=== PATIENT | male | born 1990 | race Caucasian/White ===

== ENCOUNTER 2016-09-10 18:03 | Emergency (ER) | payer OTHER ==
[~2016-09-10] VITALS: Ht 162.6 cm; Wt 100.0 kg
[2016-09-10 18:09] VITALS: Ht 162.6 cm; Wt 100.0 kg
[2016-09-10] MEDS ORDERED: PRED20TA PO (20:49)
[2016-09-10] MEDS ORDERED: SULF1TAB31 PO (20:49)
[2016-09-10] MEDS ORDERED: CEPH-443 PO (20:49)
[2016-09-10] MEDS ORDERED: CALA177S TOP (20:49)
[2016-09-10] MEDS ORDERED: KENC1 TOP (20:51)
[2016-09-10 21:32] VITALS: BP 132/72; PULSE 88; RESP 20; TEMP 98.6
--- NOTE | 2016-09-11 01:00 | ERD ---
ER Documentation Chief Complaint Date/Time DATE: 09/11/16 TIME: 00:57 Chief Complaint LEFT LEG RASH YESTERDAY, REDNESS AND SWELLING TODAY HPI This is a 26-year-old male who presents to the ED with bilateral lower extremity rash and itching. Patient states that started with a vesicular rash on the left leg 4 days ago that eventually ruptured and became erythematous. Patient stated that the right leg rash developed yesterday. 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 Denies any recent history of fever, nausea, vomiting, diarrhea, cough, dysuria, shortness of breath or chest pain. Patient denies taking any new medications, food or clothing. Patient did not take any medications at home. Has surgical history of appendectomy. No known drug allergies. ROS All systems reviewed and are negative except as per history of present illness. Medications Home Meds Active Scripts Triamcinolone Acetonide (Triamcinolone Acetonide) 0.1% - 15 Gm Cream.gm., 1 APPLIC TOP BID, #1 TUB Prov:MICHAEL GIRARD 09/10/16 Calamine with Zinc Oxide* (Calamine with Zinc Oxide*) 177 Ml Suspension, 1 APPLIC TOP Q4H Y for 5 Days, EA Prov:MICHAEL GIRARD 09/10/16 Prednisone* (Prednisone*) 20 Mg Tab, 40 MG PO DAILY for 4 Days, TAB Prov:MICHAEL GIRARD 09/10/16 Sulfamethoxazole/Trimethoprim (Bactrim Ds Tablet) 1 Each Tablet, 1 EACH PO BID for 7 Days, TAB Prov:MICHAEL GIRARD 09/10/16 Cephalexin* (Keflex*) 500 Mg Capsule, 500 MG PO QID for 7 Days, CAP Prov:MICHAEL GIRARD 09/10/16 Allergies Allergies: Coded Allergies: No Known Allergy (Unverified , 06/24/11) PMhx/Soc History of Surgery: Yes (appendectomy) Anesthesia Reaction: No Hx Neurological Disorder: No Hx Respiratory Disorders: No Hx Cardiac Disorders: No Hx Psychiatric Problems: No Hx Miscellaneous Medical Probl: No Hx Alcohol Use: No Hx Substance Use: No Hx Tobacco Use: No Smoking Status: Never smoker Physical Exam Vitals Vital Signs Date Time Temp Pulse Resp B/P Pulse Ox O2 Delivery O2 Flow Rate FiO2 09/10/16 21:32 98.6 88 20 132/72 99 Room Air 09/10/16 18:09 98.0 90 20 140/78 99 Physical Exam Physical Exam CONST: Well-developed, well-nourished, in no acute distress. Nontoxic in appearance. HEENT: Atraumatic. Normal conjunctiva. EOM intact. TM intact. External ear is normal. Clear oropharnyx without erythema. No uvular deviation. Moist mucous membranes. Supple neck. No meningismus. No submandibular induration. RESP: Clear to auscultation bilaterally. No wheezing. CARDIO: Regular rate and rhythm, no murmurs. ABD: Soft, non tender, non distended. Normal bowel sounds. No McBurney's point tenderness. No guarding or rigidity. No peritoneal signs. SKIN: Vesicular rashes L>R lower extremities. Surrounding erythema noted on the left vesicular rashes. Ulceration was also noted due to scratching. BACK: No midline or flank tenderness. EXT: No cyanosis or edema. Distal pulses equal and bilateral. NEURO: Awake and alert, appropriate for age. 5/5 strength in all extremities. Normal speech. Steady gait. Procedures/[facility] EMERGENCY DEPARTMENT COURSE/MEDICAL DECISION MAKING This is a 18-year-old male who comes to the emergency room secondary to complaints of rashes on both lower extremities and erythema in her left lower extremity. Patient appears nontoxic and afebrile. I Believe the rashes are caused by contact dermatitis from hiking. My primary diagnosis is rash. Secondary diagnosis is cellulitis Differential diagnoses considered but not limited to scabies, cellulitis, dermatitis, foreign body, varicella, eczema, fungal infection, Lyme disease. Pt is hemodynamically stable upon reassessment. There are no new complaints during the ED course. The patient was discharged for outpatient management with a prescription for Bactrim, Keflex, prednisone, calamine lotion and triamcinolone. The patient was advised to see a director global and to followup with their PMD in 1-2 days and to return to the Emergency Department if there are any new or worsening symptoms. The patient understood and agreed with the diagnosis, treatment and plan. Patient is stable for discharge at this time. Departure Diagnosis: Primary Impression: Rash Additional Impression: Cellulitis Site of cellulitis: extremity Site of cellulitis of extremity: lower extremity Laterality: left Qualified Code: L03.116 - Cellulitis of left lower extremity Condition: Stable Patient Instructions: Self-Care for Skin Rashes, Cellulitis Referrals: [facility] YOU HAVE RECEIVED A MEDICAL SCREENING EXAM AND THE RESULTS INDICATE THAT YOU DO NOT HAVE A CONDITION THAT REQUIRES URGENT TREATMENT IN THE EMERGENCY DEPARTMENT. FURTHER EVALUATION AND TREATMENT OF YOUR CONDITION CAN WAIT UNTIL YOU ARE SEEN IN YOUR DOCTORS OFFICE WITHIN THE NEXT 1-2 DAYS. IT IS YOUR RESPONSIBILITY TO MAKE AN APPOINTMENT FOR FOLOW-UP CARE. IF YOU HAVE A PRIMARY DOCTOR --you should call your primary doctor and schedule an appointment IF YOU DO NOT HAVE A PRIMARY DOCTOR YOU CAN CALL OUR PHYSICIAN REFERRAL HOTLINE AT IF YOU CAN NOT AFFORD TO SEE A PHYSICIAN YOU CAN CHOSE FROM THE FOLLOWING [facility] [id number] [facility] [address] [facility] [facility] [address] [facility] [address] [facility] [address] [facility]. [facility] [address] [facility]. [facility] YOU HAVE RECEIVED A MEDICAL SCREENING EXAM AND THE RESULTS INDICATE THAT YOU DO NOT HAVE A CONDITION THAT REQUIRES URGENT TREATMENT IN THE EMERGENCY DEPARTMENT. FURTHER EVALUATION AND TREATMENT OF YOUR CONDITION CAN WAIT UNTIL YOU ARE SEEN IN YOUR DOCTORS OFFICE WITHIN THE NEXT 1-2 DAYS. IT IS YOUR RESPONSIBILITY TO MAKE AN APPOINTMENT FOR FOLOW-UP CARE. IF YOU HAVE A PRIMARY DOCTOR --you should call your primary doctor and schedule and appointment IF YOU DO NOT HAVE A PRIMARY DOCTOR YOU CAN CALL OUR PHYSICIAN REFERRAL HOTLINE AT . IF YOU CAN NOT AFFORD TO SEE A PHYSICIAN YOU CAN CHOSE FROM THE FOLLOWING [facility]: [facility] [address] [place] [address] [facility] [address] [place] [address] [facility] [address] [place] [address] Additional Instructions: See a director global. Call your primary care doctor tomorrow for an appointment during the next 1-2 days. Return to the emergency department immediately should you have any new or worsening symptoms. Take all medications as directed. MICHAEL GIRARD Sep 11, 2016 00:59
== END 2016-09-10 21:33 | disposition home or self-care (01) ==
LOC: FTE 18:03
DX: R21 Rash and other nonspecific skin eruption (principal); L03.116 Cellulitis of left lower limb
CPT/HCPCS: 99284

== ENCOUNTER 2017-05-12 07:10 | Emergency (ER) | payer MEDICAID, OTHER ==
[~2017-05-12] VITALS: Ht 170.2 cm; Wt 89.3 kg
[~2017-05-12 07:10] MED LIST: CALA177S TOP; CEPH-443 PO; PRED20TA PO; SULF1TAB31 PO; TRIA15CR55 TOP
[2017-05-12 07:12] VITALS: Ht 170.2 cm; Wt 89.3 kg
[2017-05-12] MEDS ORDERED: morphine 4 MG/ML VIAL IV STA (07:49)
[2017-05-12] MEDS ORDERED: FAMOTIDINE 20 MG TAB PO STA (07:49)
[2017-05-12] MEDS ORDERED: ONDANSETRON 4 MG INJ IV STA (07:49)
[2017-05-12 08:13] LABS: BASOPHILS % 0.5 % (0.0-2.0); EOSINOPHILS # 0.1 10^3/ul (0.0-0.5); EOSINOPHILS % 0.9 % (0.0-7.0); HEMATOCRIT 43.6 % (42.0-52.0); HEMOGLOBIN 14.2 g/dl (14.0-18.0); LYMPHOCYTES # 1.8 10^3/ul (0.8-2.9); LYMPHOCYTES % 21.1 % (15.0-51.0); MEAN CORPUSCULAR HEMOGLOBIN 27.8 pg (29.0-33.0); MEAN CORPUSCULAR HGB CONC 32.6 g/dl (32.0-37.0); MEAN CORPUSCULAR VOLUME 85.5 fl (82.0-101.0); MEAN PLATELET VOLUME 9.8 fl (7.4-10.4); MONOCYTE # 0.4 10^3/ul (0.3-0.9); MONOCYTES % 4.7 % (0.0-11.0); NEUTROPHIL # 6.3 10^3/ul (1.6-7.5); NEUTROPHILS % 72.6 % (39.0-77.0); PLATELET COUNT 398 10^3/UL (140-415); RED CELL DISTRIBUTION WIDTH 13.5 % (11.5-14.5); WHITE BLOOD COUNT 8.7 10^3/ul (4.8-10.8)
[2017-05-12 08:18] LABS: ADD UMIC YES; UR ASCORBIC ACID NEGATIVE (NEGATIVE); UR BILIRUBIN (Dip) NEGATIVE (NEGATIVE); UR BLOOD (Dip) 1+ mg/dL (NEGATIVE); UR CLARITY CLEAR (CLEAR); UR COLOR YELLOW (YELLOW); UR GLUCOSE (Dip) NEGATIVE (NEGATIVE); UR KETONES (Dip) NEGATIVE (NEGATIVE); UR LEUKOCYTE ESTERASE (Dip) NEGATIVE Leu/ul (NEGATIVE); UR NITRITE (Dip) NEGATIVE (NEGATIVE); UR RBC 1 /HPF (0-5); UR SPECIFIC GRAVITY (Dip) 1.021 (1.003-1.030); UR TOTAL PROTEIN (Dip) NEGATIVE (NEGATIVE); UR UROBILINOGEN (Dip) NEGATIVE (NEGATIVE)
[2017-05-12 08:46] LABS: ALBUMIN/GLOBULIN RATIO 1.53; CALCIUM 9.6 mg/dl (8.4-10.2); CREATININE 1.06 mg/dl (0.61-1.24); POTASSIUM 4.5 mmol/L (3.5-5.1); TOTAL PROTEIN 6.6 g/dl (6.1-8.1)
--- NOTE | 2017-05-12 09:00 | RADRPT ---
PROCEDURE: Right upper quadrant abdominal ultrasound. CLINICAL INDICATION: Abdominal pain TECHNIQUE: Morales scale and color doppler ultrasound images of the right upper quadrant of the abdom en. COMPARISON: None FINDINGS: Pancreas: Not well visualized. Liver: Morphology: The right lobe of the liver is elongated measuring up to cm which may reflect Joni's lobe configuration. Contour:Normal, no evidence of nodularity. Echogenicity: Normal. Focal lesions:None. Main portal vein: Patent with hepatopetal flow. Biliary System: Gallbladder wall: Normal thickness. Gallstones: Present Intrahepatic bile ducts: Normal caliber. Common bile duct diameter (mm): 3.8 Kidneys: Right length (cm) : 10.7 Right cortical thickness: Normal. Echogenicity: Normal. Hydronephrosis: None. Renal calculi: None. Focal lesions: None. Free fluid/ascites: None. Abdominal aorta: Not visualized by the mailmaster. Other findings: None. IMPRESSION: Cholelithiasis without evidence of abnormal gallbladder wall thickening to suggest cholecystitis. Normal caliber of the intrahepatic and extrahepatic biliary system. RPTAT: AADD .Nehemiah Victoria MD, MD Date Time Electronically viewed and signed by .Nehemiah Victoria MD, on 05/12/2017 09:00 .B/
--- NOTE | 2017-05-12 10:22 | ERD ---
ER Documentation Chief Complaint Chief Complaint abdominal pain this morning HPI This is a 26 -year-old male who presents to the emergency department today complaining of upper abdominal pain that started this morning. States that the pain "will not go away. States he has a history of appendectomy. States that he went out last night and ate from a food truck and has had pain since that time. States that he drinks some lemon water but has not improved in symptoms. Denies any alcohol use or drug abuse. States he recently lost 65 pounds to help with his diet. Denies any vomiting or diarrhea. Denies any fevers or chills. ROS All systems reviewed and are negative except as per history of present illness. Medications Home Meds Active Scripts Famotidine* (Pepcid*) 20 Mg Tablet, 20 MG PO BID for 10 Days, TAB Prov:JUAN STEIN PA-C 05/12/17 Naproxen* (Naprosyn*) 500 Mg Tablet, 500 MG PO BID Y for PAIN AND/OR INFLAMMATION, #30 TAB Prov:JUAN STEIN PA-C 05/12/17 Hydrocodone/Acetaminophen ([place] 5-325 Tablet) 1 Each Tablet, 1 TAB PO Q6H Y for PAIN, #10 TAB Prov:JUAN STEIN PA-C 05/12/17 Triamcinolone Acetonide (Triamcinolone Acetonide) 0.1% - 15 Gm Cream.gm., 1 APPLIC TOP BID, #1 TUB Prov:MICHAEL GIRARD 09/10/16 Calamine with Zinc Oxide* (Calamine with Zinc Oxide*) 177 Ml Suspension, 1 APPLIC TOP Q4H Y for 5 Days, EA Prov:MICHAEL GIRARD 09/10/16 Prednisone* (Prednisone*) 20 Mg Tab, 40 MG PO DAILY for 4 Days, TAB Prov:MICHAEL GIRARD 09/10/16 Sulfamethoxazole/Trimethoprim* (Bactrim Ds* Tablet) 1 Each Tablet, 1 EACH PO BID for 7 Days, TAB Prov:MICHAEL GIRARD 09/10/16 Cephalexin* (Keflex*) 500 Mg Capsule, 500 MG PO QID for 7 Days, CAP Prov:MICHAEL GIRARD 09/10/16 Allergies Allergies: Coded Allergies: No Known Allergy (Unverified , 05/12/17) PMhx/Soc History of Surgery: Yes (appendectomy) Anesthesia Reaction: No Hx Neurological Disorder: No Hx Respiratory Disorders: No Hx Cardiac Disorders: No Hx Psychiatric Problems: No Hx Miscellaneous Medical Probl: No Hx Alcohol Use: Yes Hx Substance Use: No Hx Tobacco Use: No Smoking Status: Never smoker Physical Exam Vitals Vital Signs Date Time Temp Pulse Resp B/P Pulse Ox O2 Delivery O2 Flow Rate FiO2 05/12/17 07:12 98.2 65 18 136/81 100 Physical Exam Const: NAD Head: Atraumatic Eyes: Normal Conjunctiva ENT: Normal External Ears, Nose and Mouth. Neck: Full range of motion..~ No meningismus. Resp: Clear to auscultation bilaterally Cardio: Regular rate and rhythm, no murmurs Abd: Soft, gastric and right upper quadrant pain non distended. Normal bowel sounds no lower abdominal pain Skin: No petechiae or rashes. Evidence of surgical scar right umbilical area Back: No midline or flank tenderness Ext: No cyanosis, or edema Neur: Awake and alert Psych: Normal Mood and Affect Result Diagram: 05/12/17 0759 05/12/17 0759 Results 24 hrs Laboratory Tests Test 05/12/17 07:55 05/12/17 07:59 Urine Color YELLOW Urine Clarity CLEAR Urine pH 6.0 Urine Specific Arco 1.021 Urine Ketones NEGATIVEmg/dL Urine Nitrite NEGATIVEmg/dL Urine Bilirubin NEGATIVEmg/dL Urine Urobilinogen NEGATIVEmg/dL Urine Leukocyte Esterase NEGATIVELeu/ul Urine Microscopic RBC 1/HPF Urine Microscopic WBC 0/HPF Urine Hemoglobin 1+mg/dL Urine Glucose NEGATIVEmg/dL Urine Total Protein NEGATIVEmg/dl White Blood Count 8.710^3/ul Red Blood Count 5.1010^6/ul Hemoglobin 14.2g/dl Hematocrit 43.6% Mean Corpuscular Volume 85.5fl Mean Corpuscular Hemoglobin 27.8pg Mean Corpuscular Hemoglobin Concent 32.6g/dl Red Cell Distribution Width 13.5% Platelet Count 71661^3/UL Mean Platelet Volume 9.8fl Neutrophils % 72.6% Lymphocytes % 21.1% Monocytes % 4.7% Eosinophils % 0.9% Basophils % 0.5% Nucleated Red Blood Cells % 0.0/100WBC Neutrophils # 6.310^3/ul Lymphocytes # 1.810^3/ul Monocytes # 0.410^3/ul Eosinophils # 0.110^3/ul Basophils # 0.010^3/ul Nucleated Red Blood Cells # 0.010^3/ul Sodium Level 142mmol/L Potassium Level 4.5mmol/L Chloride Level 105mmol/L Carbon Dioxide Level 27mmol/L Anion Gap 15 Blood Urea Nitrogen 23mg/dl Creatinine 1.06mg/dl Glucose Level 109mg/dl Calcium Level 9.6mg/dl Total Bilirubin 0.0mg/dl Direct Bilirubin 0.00mg/dl Indirect Bilirubin 0.0mg/dl Aspartate Amino Transf (AST/SGOT) 63IU/L Alanine Aminotransferase (ALT/SGPT) 88IU/L Alkaline Phosphatase 88IU/L Total Protein 6.6g/dl Albumin 4.0g/dl Globulin 2.60g/dl Albumin/Globulin Ratio 1.53 Lipase 117U/L Current Medications Medications (Trade) Dose Ordered Sig/Brendon Route PRN Reason Start Time Stop Time Status Last Admin Dose Admin Morphine Sulfate (morphine) 4 mg ONCE STAT IV 05/12/17 07:49 05/12/17 07:52 DC 05/12/17 08:04 Ondansetron HCl (Zofran Inj) 4 mg ONCE STAT IV 05/12/17 07:49 05/12/17 07:52 DC 05/12/17 08:04 Famotidine (Pepcid) 20 mg ONCE STAT PO 05/12/17 07:49 05/12/17 07:52 DC 05/12/17 08:04 DIAGNOSTIC IMAGING REPORT Patient: ROMAIN LENNON : 1990 Age: 26 Sex: M MR #: [id number] DOS: 05/12/17 0749 Ordering MD: JUAN STEIN PA-C Location: E Room/Bed: PROCEDURE: Right upper quadrant abdominal ultrasound. CLINICAL INDICATION: Abdominal pain TECHNIQUE: Morales scale and color doppler ultrasound images of the right upper quadrant of the abdomen. COMPARISON: None FINDINGS: Pancreas: Not well visualized. Liver: Morphology: The right lobe of the liver is elongated measuring up to cm which may reflect Joni's lobe configuration. Contour:Normal, no evidence of nodularity. Echogenicity: Normal. Focal lesions:None. Main portal vein: Patent with hepatopetal flow. Biliary System: Gallbladder wall: Normal thickness. Gallstones: Present Intrahepatic bile ducts: Normal caliber. Common bile duct diameter (mm): 3.8 Kidneys: Right length (cm) : 10.7 Right cortical thickness: Normal. Echogenicity: Normal. Hydronephrosis: None. Renal calculi: None. Focal lesions: None. Free fluid/ascites: None. Abdominal aorta: Not visualized by the maintenance construction helper. Other findings: None. IMPRESSION: Cholelithiasis without evidence of abnormal gallbladder wall thickening to suggest cholecystitis. Normal caliber of the intrahepatic and extrahepatic biliary system. RPTAT: AADD .Nehemiah Victoria MD, MD Date Time Electronically viewed and signed by .Nehemiah Victoria MD, MD on 05/12/2017 09:00 .B/ CC: JUAN STEIN PA-C Procedures/[facility] This is a 26-year-old male presented to the emergency department today complaining of upper abdominal pain that started this morning after eating a food check. Patient had epigastric and right upper quadrant pain on physical exam and therefore did obtain laboratory workup as well as an imaging. Laboratory workup shows no elevated white blood cell count. He is not anemic. Platelets are within normal limits. Electrolytes are within normal limits. Glucose is within normal limits. Liver enzymes are very mildly elevated. Bilirubin is within normal limits. Lipase is within normal limits. UA is negative for infection Right upper quadrant ultrasound shows evidence of gallstones without evidence of abnormal gallbladder wall thickening to suggest cholecystitis. There is normal caliber of the intrahepatic and extrahepatic biliary system. Common bile duct measures 3.8 mm in maximal dimension. Patient also has a Joni's lobe configuration in the right lobar lobe of the liver Symptoms at this time is consistent with gallstones without evidence of acute cholecystitis. Other differentials to consider are gastritis versus gastric ulcer. Low suspicion for acute surgical abdomen. There is no evidence of pancreatitis. He was given Motrin and Zofran and Pepcid here in the emergency department. Patient reported feeling significantly better. He will be given a prescription for short course of [place], Naprosyn for home. I explained all results to the patient. He has been instructed to follow-up with a primary care doctor for referral to general transmission specialist. I have given him a list of resources. At this time the patient is stable for discharge and outpatient management. Patient should follow up with their PCP in the next 1-2 days. They may return to the emergency department sooner for any persistent or worsening of symptoms. Patient understood and agreed with the plan. Departure Diagnosis: Primary Impression: Abdominal pain Abdominal location: epigastric Qualified Code: R10.13 - Epigastric pain Additional Impression: Gallstones Condition: JUAN Reveles PA-C May 12, 2017 10:22
[2017-05-12] MEDS ORDERED: HYDR-906 PO (10:53)
[2017-05-12] MEDS ORDERED: FAMO-96 PO (10:54)
[2017-05-12] MEDS ORDERED: NAPR-260 PO (10:54)
[2017-05-12 11:05] VITALS: BP 130/78; PULSE 62; RESP 17
== END 2017-05-12 11:33 | disposition home or self-care (01) ==
LOC: FTE 07:10
DX: K80.20 Calculus of gallbladder without cholecystitis without obstruction (principal)
CPT/HCPCS: 36415; 76705; 80053; 81001; 83690; 85025; 96374; 96375; J2270; J2405; Z7502; Z7610

== ENCOUNTER 2017-07-13 16:18 | Emergency (ER) | END 2017-07-13 20:15 | disposition home or self-care (01) ==

== ENCOUNTER 2017-07-15 08:42 | Inpatient (IN) | END 2017-07-17 18:40 | disposition home health service (06) | DRG 419 ==